=== PATIENT | female | born 1990 | race Caucasian/White ===

== ENCOUNTER 2018-11-14 17:51 | Outpatient (REF) | payer OTHER, SELFPAY ==
[2018-11-17 14:03] LABS: Chlamydia Result Negative; GC Result Negative; Specimen Description CERVIX
== END 2018-11-14 18:11 ==
LOC: LBN 17:51
PROVIDERS: PCP Nurse Practitioner Family; Visit Provider Nurse Practitioner Women's Health
DX: Z11.3 Encounter for screening for infections with a predominantly sexual mode of transmission (principal)
CPT/HCPCS: 87491; 87591

== ENCOUNTER 2020-11-23 14:44 | Outpatient (REF) | payer OTHER, SELFPAY ==
--- NOTE | 2020-11-23 14:15 | PAPFT_PTH ---
PATIENT: Bebe Cronin LOC: [facility] U#:[id number] AGE/SX: 30/F ROOM: RE11/23/[address]: Connie Kwon NP : 1990 BED: DIS: 11/23/2020 SPEC #: [id number] RECD: 11/23/20 17:53 STATUS: ALEK MARTINEZ #: [id number] YUKO: 11/23/20 14:[address]: Connie Kwon NP DEPT: [facility] Cytology RECD BY: Zahraa Higgins ENTERED: 11/23/20 17:54 SP TYPE: PAPFT OTHR DR: Crissy Benavides Tissues: 1 - CX/ENDOCX FOR PAP SMEARS Procedures: PAP THIN PREP/UVM Screening HPV DNA PROBE Comments: [id number]
== END 2020-11-23 14:45 | disposition home or self-care (01) ==
LOC: LBN 14:44
PROVIDERS: PCP Nurse Practitioner Family; Visit Provider Nurse Practitioner Women's Health
DX: Z12.4 Encounter for screening for malignant neoplasm of cervix (principal); Z11.51 Encounter for screening for human papillomavirus (HPV)
CPT/HCPCS: 88142; 87624

== ENCOUNTER 2022-01-18 04:09 | Outpatient (CLI) | payer OTHER, SELFPAY ==
[2022-01-18 09:19] LABS: TSH (W/Ref FT4) 2.73 uIU/mL (0.36-3.74)
== END 2022-01-18 04:10 | disposition home or self-care (01) ==
LOC: LBO 04:10
PROVIDERS: PCP Nurse Practitioner Family; Visit Provider Nurse Practitioner Women's Health
DX: R63.5 Abnormal weight gain (principal)
CPT/HCPCS: 36415; 84443

== ENCOUNTER 2022-03-20 15:44 | Outpatient (REF) | payer OTHER, SELFPAY ==
[2022-03-20 14:23] LABS: Abs Immature Grans 0.02 10^3/uL (0.0-0.06); Absolute Basophil Count 0.04 10^3/uL (0.0-0.2); Absolute Eosinophil Count 0.08 10^3/uL (0.0-0.7); Absolute Lymphocyte Count 1.41 10^3/uL (1.2-3.4); Absolute Monocyte Count 0.54 10^3/uL (0.1-0.8); Absolute Neutrophil Count 5.24 10^3/uL (1.2-6.7); Basophils % 0.5; Eosinophils % 1.1; HCT 41.1 % (36.0-46.0); HGB 14.1 g/dL (11.2-15.7); Immature Grans % 0.3; Lymphocytes % 19.2; MCH 30.7 pg (27.0-33.0); MCHC 34.3 % (32.0-36.0); MCV 90 fL (80-95); MPV 10.5 fL (8.0-11.0); Monocytes % 7.4; Neutrophils % 71.5; Platelet Count 257 10^3/uL (130-400); RBC 4.59 10^6/uL (3.93-5.22); RDW-SD 39.3 fL; WBC 7.33 10^3/uL (4.4-10.8)
[2022-03-20 14:44] LABS: Iron 59 ug/dL (50-170); Total Iron Binding Capacity 249 ug/dL (250-450); Transferrin Sat 24 % (15-50)
[2022-03-20 15:07] LABS: Anion Gap 6.5 mmol/L (3-11); BUN 11 mg/dL (7-18); CO2 29.5 mmol/L (21.0-32.0); CREATININE 0.9 mg/dL (0.55-1.02); Calcium 9.1 mg/dL (8.5-10.1); Chloride 107 mmol/L (98-107); FREE T4 0.94 ng/dL (0.76-1.46); Ferritin 103 ng/mL (8-252); Glucose 87 mg/dL (74-106); Potassium 4.1 mmol/L (3.5-5.1); Sodium 143 mmol/L (136-145); TSH 1.56 uIU/mL (0.36-3.74); Vitamin B12 289 pg/mL (193-986)
[2022-03-20 22:45] LABS: T3,Free 3.3 pg/mL (2.8-5.3)
== END 2022-03-20 15:45 | disposition home or self-care (01) ==
LOC: NCHCN 15:44
PROVIDERS: PCP Nurse Practitioner Family; Visit Provider Nurse Practitioner Family
DX: Z00.00 Encounter for general adult medical examination without abnormal findings (principal); R51.9 Headache, unspecified; R55 Syncope and collapse; R14.0 Abdominal distension (gaseous); R53.83 Other fatigue; L85.3 Xerosis cutis; M25.561 Pain in right knee; M25.562 Pain in left knee; Z13.21 Encounter for screening for nutritional disorder
CPT/HCPCS: 80048; 82607; 82728; 83540; 83550; 84439; 84443; 84481; 85025

== ENCOUNTER 2023-04-05 01:55 | Outpatient (CLI) | payer BC, SELFPAY ==
[2023-04-05 10:39] LABS: Abs Immature Grans 0.03 10^3/uL (0.0-0.06); Absolute Basophil Count 0.02 10^3/uL (0.0-0.2); Absolute Eosinophil Count 0.04 10^3/uL (0.0-0.7); Absolute Lymphocyte Count 1.55 10^3/uL (1.2-3.4); Absolute Monocyte Count 0.45 10^3/uL (0.1-0.8); Absolute Neutrophil Count 5.17 10^3/uL (1.2-6.7); Basophils % 0.3; Eosinophils % 0.6; HGB 13.8 g/dL (11.2-15.7); Immature Grans % 0.4; Lymphocytes % 21.3; MCH 30.2 pg (27.0-33.0); MCHC 34.5 % (32.0-36.0); MCV 88 fL (80-95); MPV 9.6 fL (8.0-11.0); Monocytes % 6.2; Neutrophils % 71.2; Platelet Count 209 10^3/uL (130-400); RBC 4.57 10^6/uL (3.93-5.22); RDW 12.4 % (11.7-14.6); RDW-SD 39.7 fL; WBC 7.26 10^3/uL (4.4-10.8)
[2023-04-06 11:20] LABS: HIV-1/2 Ag & Ab Screen Negative (Negative)
[2023-04-08 10:47] LABS: Hepatitis C Ab w Rflx HCV PCR Negative (Negative)
[2023-04-08 10:50] LABS: Hepatitis B Surface Ag Negative (Negative)
[2023-04-08 11:36] LABS: Rubella IgG Ab (UVM) Positive (See Note); Varicella IgG Antibody Positive (See Note)
[2023-04-08 16:09] LABS: Syphilis IgG w/Reflex Nonreactive (Nonreactive)
== END 2023-04-05 01:56 | disposition home or self-care (01) ==
LOC: LBO 01:55
PROVIDERS: PCP Nurse Practitioner Family; Visit Provider Advanced Practice Midwife
DX: Z34.91 Encounter for supervision of normal pregnancy, unspecified, first trimester (principal)
CPT/HCPCS: 36415; 86787; 86803; 86850; 86900; 86901; 87340; 87389; 85025; 86762; 86780

== ENCOUNTER 2023-04-05 09:52 | Outpatient (REF) | payer BC, SELFPAY ==
[2023-04-05 13:41] LABS: *AMPHETAMINES SCREEN URINE Negative (Negative); *BARBITURATES SCREEN URINE Negative (Negative); *BENZODIAZEPINES SCREEN URINE Negative (Negative); Cannabinoids THC Negative (Negative); Cocaine Screen,Urine Negative (Negative); METHADONE URINE SCREEN Negative (Negative); OPIATES URINE SCREEN Negative (Negative)
[2023-04-05 13:44] LABS: Tricyclic Antidepressants Negative (Negative)
== END 2023-04-05 09:53 | disposition home or self-care (01) ==
LOC: LBN 09:52
PROVIDERS: PCP Nurse Practitioner Family; Visit Provider Advanced Practice Midwife
DX: Z34.91 Encounter for supervision of normal pregnancy, unspecified, first trimester (principal); Z3A.12 12 weeks gestation of pregnancy
CPT/HCPCS: 80307; 87086

== ENCOUNTER 2023-05-03 13:32 | Outpatient (REF) | payer BC, SELFPAY ==
[2023-05-04 14:09] LABS: Chlamydia Result Negative (Negative); GC Result Negative (Negative)
== END 2023-05-03 13:33 | disposition home or self-care (01) ==
LOC: LBN 13:32
PROVIDERS: PCP Nurse Practitioner Family; Visit Provider Advanced Practice Midwife
DX: Z34.92 Encounter for supervision of normal pregnancy, unspecified, second trimester (principal); Z3A.16 16 weeks gestation of pregnancy; Z11.3 Encounter for screening for infections with a predominantly sexual mode of transmission
CPT/HCPCS: 87491; 87591

== ENCOUNTER 2023-07-26 02:29 | Outpatient (CLI) | payer BC, SELFPAY ==
[2023-07-26 11:35] LABS: HCT 34.3 % (36.0-46.0); HGB 12.1 g/dL (11.2-15.7); MCH 31.7 pg (27.0-33.0); MCHC 35.3 % (32.0-36.0); MCV 90 fL (80-95); MPV 9.5 fL (8.0-11.0); Platelet Count 195 10^3/uL (130-400); RBC 3.82 10^6/uL (3.93-5.22); RDW-SD 42.1 fL; WBC 8.14 10^3/uL (4.4-10.8)
[2023-07-26 11:56] LABS: Glucose,1 Hr (Glucola) 104 mg/dL (80-140)
== END 2023-07-26 02:30 | disposition home or self-care (01) ==
LOC: LBO 02:30
PROVIDERS: PCP Nurse Practitioner Family; Visit Provider Advanced Practice Midwife
DX: Z34.93 Encounter for supervision of normal pregnancy, unspecified, third trimester (principal)
CPT/HCPCS: 36415; 82950; 85027; 86850

== ENCOUNTER 2023-09-20 09:51 | Outpatient (REF) | payer BC, SELFPAY ==
[2023-09-20 11:49] LABS: *AMPHETAMINES SCREEN URINE Negative (Negative); *BARBITURATES SCREEN URINE Negative (Negative); *BENZODIAZEPINES SCREEN URINE Negative (Negative); Cannabinoids THC Negative (Negative); Cocaine Screen,Urine Negative (Negative); METHADONE URINE SCREEN Negative (Negative); OPIATES URINE SCREEN Negative (Negative); Tricyclic Antidepressants Negative (Negative)
[2023-09-27 12:16] LABS: Buprenorphine Negative ng/mL (Cutoff: 5.0)
== END 2023-09-20 09:52 | disposition home or self-care (01) ==
LOC: LBN 09:51
PROVIDERS: PCP Nurse Practitioner Family; Visit Provider Advanced Practice Midwife
DX: Z34.93 Encounter for supervision of normal pregnancy, unspecified, third trimester (principal)
CPT/HCPCS: 80307; 80348; 87081

== ENCOUNTER 2023-10-10 10:14 | Outpatient (CLI) | payer BC, SELFPAY ==
[2023-10-10 10:21] VITALS: BP 107/64; PULSE 67; TEMP 36.7
--- NOTE | 2023-10-10 11:08 | W.OBNST ---
Date of service: 10/10/23 Time of Service: 11:08 NST Evaluation Reason for NST Reasons for Nonstress Test: OTHER, SEE COMMENT Reason for NST Other: Decreased Movement Gestational Age Gestational Age in Weeks and Days: 38 Weeks and 6Days Test and Monitor Explained Test/Monitor Explained: Test Explained and Monitor Explained Vital Signs Blood Pressure: 107/64 Pulse: 67 Temperature: 98.1 F NST Information Date on Monitor: 10/10/23 Time on Monitor: 09:51 Date off Monitor: 10/10/23 Time off Monitor: 10:24 Total Time on Monitor: 33 NST Interventions: None NST Evaluation Patient States Movement: Present FHR Baseline: 135 Variability: Moderate 6-25 bpm Accelerations: 15x15 Decelerations: None NST Results: Reactive Note Ultrasound Done: N/A. NST Note Note: NST due to slight decrease in movement for baby reported at office visit. NST is reactive and reassuring and patient is relieved. Planned IOL on 10/16. CJ NST Reviewed and Verified by: Saige Hirsch
[2023-10-10 11:09] VITALS: BP 107/64; PULSE 67; TEMP 36.7
== END 2023-10-10 10:27 | disposition home or self-care (01) ==
LOC: BCD 10:15
PROVIDERS: PCP Nurse Practitioner Family; Visit Provider Advanced Practice Midwife
DX: O36.8131 Decreased fetal movements, third trimester, fetus 1 (principal); Z3A.38 38 weeks gestation of pregnancy
CPT/HCPCS: 59025

== ENCOUNTER 2023-10-16 07:34 | Inpatient (IN) | payer BC, SELFPAY ==
[2023-10-16] VITALS (75 sets, daily range): BP systolic 103–120; BP diastolic 55–75; PULSE 0–101; RESP 16; TEMP 36–37.2; O2SAT 99
[2023-10-16 08:32] LABS: HCT 35.2 % (36.0-46.0); HGB 11.9 g/dL (11.2-15.7); MCH 29.7 pg (27.0-33.0); MCHC 33.8 % (32.0-36.0); MCV 88 fL (80-95); MPV 10.3 fL (8.0-11.0); Platelet Count 195 10^3/uL (130-400); RBC 4.01 10^6/uL (3.93-5.22); RDW 12.6 % (11.7-14.6)
[2023-10-16] MEDS: miSOPROStol 25 MCG TAB 50 MCG PO (08:44)
--- NOTE | 2023-10-16 08:44 | W.PM.OBHPL1 ---
Date of service: 10/16/23 Time of Service: 08:44 Assessment and Plan Assessment and plan (1) Encounter for induction of labor: Status: Acute Assessment and plan: 1. Admission for induction of labor due to previous precipitous delivery and need at that time to also go to OR causing her emotional trauma and fear that it could happen that way again, prefers control and being in hospital for labor. 2. I have reviewed in detail, methods of induction, why they are used, risks, potential side effects and intended outcomes as well as procedures associated with induction. She is aware that induction can be a slower process. She prefers that physician is in house when is immanent and I have reviewed this with our physician team and they have agreed. I will also make OR aware that she is here for induction and that she did require trip to OR in past for repair but that she does not have plans for epidural. 3. CBC and type and screen obtained. 4. Elder are both Rh negative and she chose to not do Rhogam in . His red cross card is scanned into chart. 5. Low risk at this time for SD, pre-eclamspia or PPH will continue to reassess risks throughout labor. 6. Expect NVD. KH OB-HPI Labor/Delivery History of Present Illness Reason for Visit: Induction of Labor Chief Complaint: Scheduled Induction of Labor Indication for Induction: Other (history of precipitous labor). DEISY Calculator Estimated Delivery Date Method Current WG Current Estimate 10/18/23 LMP (Certain) 39w 5d Other Estimates 10/16/23 Ultrasound #1 40w 0d Comments: Bebe christiano Tyrone present for a scheduled induction of labor at 39w5d due to history of precipitous labor and trauma related to arriving at hospital in advanced labor and then needing to go to OR after delivery due to lacerations for repair. She is hoping to have a controlled labor and . We discussed options of induction vs expectant management of labor, she prefers to move forward with induction today. Denies LOF or vaginal bleeding. Baby has been active. We discussed options and methods of induction and when or why we might use any of the methods. She denies questions and verbalizes understanding of risks, benefits and alternatives to induction of labor with cervical ripening, pitocin, misoprostol, AROM or mechanical ripening with kaminski bulb. Her preference is to start with misorpostol. She is aware of tightening sensations at this time, but states they aren't real contractions. Her preference is least intervention and to use tub at time if possible. Low risk for SD, Pre-ecalmpsia or PPH is induction is not prolonged. KH History of Present Expected Delivery Route/Plan - CNM FOB/ - Tyrone White Prefers not to know the gender, will circ if male Consider MD in-house d/t previous (decels, 3rd degree) Desires nitrous & shower, plans unmedicated , might want to try tub GBS negative Specific Issues/Plan 1. Hoping for induction at 39 weeks due to precipitous labor/ 2. Declines all optional testing 3. Rh neg, Did not receive RhoGam @ 28 wks, FOB B Neg per [place] card 4. tdap done 08/23 Assessment: History Reviewed & Current Informed Consent Informed Consent: Induction of Labor and Risk,Benefits,Alternatives Discussed Review of Systems All systems reviewed & are unremarkable except as noted in HPI and below (having BH contractions) PFSH All Active Problems (Updated 10/16/23 @ 08:59 by Saige Hirsch CNM) Encounter for induction of labor (Acute) Rh negative status during (Acute) Nausea and vomiting during prior to 22 weeks gestation (Acute) History of precipitous labor and deliveries in third trimester, antepartum (Acute) (Acute) Missed menses (Acute) Family History maternal aunt Personal history of malignant neoplasm breast CA, at 32 y.o. ALS (amyotrophic lateral sclerosis) Breast cancer at age 33, no other family members affected Mother Hereditary spastic paraplegia Her provider does not believe this is a genetic concern Father Diabetes Essential hypertension Hyperlipidemia Maternal Grandmother Cancer cervical cancer Social History Smoking/Tobacco Use Status: Never Smoking risk assessment performed?: Yes Alcohol Intake: never Substance use type: does not use Household members: spouse and children Housing: house Pets and animals: Yes Pets and animals: cat(s), dog(s) and horse(s) Current gender identity: female Do you feel safe at home: Yes Do you feel safe in your relationship?: Yes Female Reproductive History Menstrual control method: progestin IUCD (Mirena inserted by Sharon CAMARENA VHF=[id number] EXP=02/2021) History History 3 Para 2 Hx # Term Pregnancies 2 Multiple births 0 Hx # Pregnancies 0 Ectopic pregnancies 0 AB induced 0 Hx Number of Living Children 2 AB spontaneous 0 Past Pregnancies Del. Date GA/Weeks # Preg Succ Route Wgt Sex Labor Lgth Anesthesia Location Prov Complic 02/16/14 39 No Yes vaginal 7 lb 12 oz Male 10 [facility] 11/04/15 41 No Yes vaginal 8 lb 6 oz Male 3 [facility] [address] Andino other Delivery Date: 02/16/14 Last Updated by: Mary Fernandez Nml , Gigi Delivery Date: 11/04/15 Last Updated by: Mary Fernandez Precip labor, prolonged w/decel, episiotomy and 3rd degree, MD arrived after , repair by MD Benja Padilla Allergies and Home Medications Allergies Allergy/AdvReac Type Severity Reaction Status Date / Time No Known Allergies Allergy Unverified 10/16/23 08:53 Home Medications Medication Instructions Recorded Confirmed Type vits no.126-ferrous fum 1 tab PO DAILY 02/25/23 10/10/23 History 28 mg iron-folic acid 800 mcg tablet (Classic ) pantoprazole 40 mg tablet,delayed 40 mg PO DAILY #30 tabs 05/03/23 10/10/23 Rx release (Protonix) Exam Physical Exam Vital signs: Temp Pulse Resp BP Pulse Ox 97.5 F L 86 16 120/75 99 10/16/23 08:27 10/16/23 08:27 10/16/23 08:27 10/16/23 08:27 10/16/23 08:27 Vital Signs Reviewed: Yes Constitutional Constitutional: no acute distress and average body habitus Detailed Labor and Delivery Exam Dilation: 1.2 Effacement (%): 40 station: -2 Position: ROP Cervix position: posterior Consistency: soft Thomas Score: Cervical Points Exam 0 1 2 3 Dilation Closed 1-2cm 3-4 cm 5-6cm Effacement 0-30% 40-50% 60-70% 80% Consistency Firm Medium Soft Station -3 -2 -1,0 +1,+2 Position Posterior Mid Anterior THOMAS Score(Cervical Ripeness Score): 5 Amniotic Membrane Status: Intact Contraction Frequency(min): irregular Contraction Duration(sec): 40-60 Contraction Intensity: Mild Fetus A Heart Rate Baseline: 145 Monitor Accelerations: 15 X 15 Monitor Decelerations: None Variability: Moderate (6-25 BPM) Categories: Category I Est. Weight: 7 lb 8 oz HEENT Exam HEENT Exam: Normal Neck Exam Neck Exam: Normal Chest/Brest/Axilla Exam Chest Exam: Normal Breast Exam Breast Exam: Not Done Respiratory Exam Respiratory Exam: Normal Cardiovascular Exam Cardiovascular Exam: Normal Abdominal Exam Abdominal Exam: Normal (gravid, size equals dates) Rectal Exam Rectal Exam: Not Done Exam Exam: Normal Extremities Exam Extremities Exam: Normal Back/Spine/Pelvis Exam Back Exam: Normal Pelvis Adequate: Yes Skin Exam Skin Exam: Normal Neurological Exam Neurological Exam: Normal Psychiatric Exam Psychiatric Exam: Normal Results Results Group Beta Strep: Negative Blood Type: B- Rubella Status: Immune Varicella Immunity: Immune Lab Results: GC CT neg, Syphilis and Hep B and C neg, HIV neg, declined cfDNA, CF neg in 2013 declined SMA, 1 hour 104 Abnormal Lab Findings: Abnormal Labs 10/16/23 08:25 Hct 35.2 L Risk Assessment Risk for Shoulder Dystocia Historical/Initial OB: NEGATIVE FOR: Pelvic Abnormality, Pre- BMI>30, Previous Shoulder Dystocia or Previous Macrosomia 36 Weeks: NEGATIVE FOR: Current Gestational DM, EFW>4500gms or Maternal Weight Gain>40lbs 40 Weeks: NEGATIVE FOR: EFW> 4500 gms, Maternal Weight Gain >40lb or Post Dates Date/Initial: 04/05/23 Delivery Plan @ 36wks: Delivery Plan @ 40 wks: induction of labor 39-40 Risk for Pre-Eclampsia Date Initiated/Initials: 04/05/23 Yes, if one or more: NEGATIVE FOR: Hx Pre-E/Gest HTN, Chronic HTN, Multiple Gestation, Pre-gestational DM, Renal Disease, Systemic Lupus or APA Syndrome Yes, if 2 or more: NEGATIVE FOR: Nulliparity, Age>= 35 yrs, >10yr btwn pregnancies, BMI>30, ethinicty, Mother/Sister w/ Pre-E or Previous IUGR Risk for Post- Hemorrhage Initial: NEGATIVE FOR: Multiple Gestation, Previous PPH, Known Clotting Deficiency, Grand Multiparity or Anticoagulation 36 Weeks: NEGATIVE FOR: Anemia, hgb<10, Low platelets(thrombocytopenia), Gestational HTN or Pre-E, Polyhydraminios or EFW>4500gms 40 Weeks: NEGATIVE FOR: Anemia, hgb<10, Low platelets (thrombocytopenia), Gestation HTN or Pre-E, Polyhydraminios or EFW>4500gms Counseled re: Active Management: Yes Date/Initials: 10/16/23 Risks Reviewed Risks Reviewed Upon Admission: Yes
--- NOTE | 2023-10-16 13:04 | W.PM.OBNL1 ---
Date of service: 10/16/23 Time of Service: 13:04 Informed Consent Informed Consent: Induction of Labor and Risk,Benefits,Alternatives Discussed Pelvic Exam Dilation: 4 Effacement (%): 70 station: -2 Position: ROT Cervix Position: mid Consistency: soft BISHOPS Score(Cervical Ripeness Score): 8 Contractions Monitor Mode: External Contraction Frequency(min): 2-3 Contraction Duration(sec): 40-60 Intensity: Moderate Fetus A Monitor: Novii Heart Rate Baseline: 135 Variability: Moderate (6-25 BPM) Categories: Category II Decelerations: Variable (non reletative) Recurrence: Intermittent Amniotic Membrane Status: Ruptured Rupture Method: Artifical Amniotic Fluid: Clear Amount: large Date of Membrane Rupture: 10/16/23 Time of Membrane Rupture: 13:01 Assessment and Plan Assessment and plan (1) Encounter for induction of labor: Status: Acute Assessment and plan: 1. AROM offered and accepted for augmentation of labor 2. Expect NVD, will reassess in 2 hours or prn. KH Objective Abnormal lab results 10/16/23 Range/Units 08:25 Hct 35.2 L (36.0-46.0) % Temp Pulse Resp BP Pulse Ox 97.5 F L 75 16 117/67 99 10/16/23 08:27 10/16/23 13:03 10/16/23 08:27 10/16/23 13:03 10/16/23 08:27 Laboratory Results WBC 6.70 10^3/uL (4.4-10.8) 10/16/23 08:25 RBC 4.01 10^6/uL (3.93-5.22) 10/16/23 08:25 Hgb 11.9 g/dL (11.2-15.7) 10/16/23 08:25 Hct 35.2 % (36.0-46.0) L 10/16/23 08:25 MCV 88 fL (80-95) 10/16/23 08:25 MCH 29.7 pg (27.0-33.0) 10/16/23 08:25 MCHC 33.8 % (32.0-36.0) 10/16/23 08:25 RDW 12.6 % (11.7-14.6) 10/16/23 08:25 Plt Count 195 10^3/uL (130-400) 10/16/23 08:25 MPV 10.3 fL (8.0-11.0) 10/16/23 08:25 Patient ABO/Rh B Negative 10/16/23 08:25 Antibody Screen NEGATIVE 10/16/23 08:25 Vital Signs Reviewed: Yes Subjective Interval history since last seen: Bebe is aware of contractions but states they aren't painful. Would prefer to try AROM for labor augmentation. KH Results Hemoglobin/Hematocrit: Hgb 11.9 g/dL (11.2-15.7) 10/16/23 08:25 Hct 35.2 % (36.0-46.0) L 10/16/23 08:25 Abnormal Lab Findings: Abnormal Labs 10/16/23 08:25 Hct 35.2 L
[2023-10-16] MEDS: Oxytocin 10 UNITS/ML VIAL IM (17:40)
[2023-10-16] MEDS: Lidocaine 1% Multi-Dose 20 ML VIAL IJ (18:13)
--- NOTE | 2023-10-16 18:13 | OBVDS_ITS ---
Date of service: 10/16/23 Time of Service: 18:14 OB Labor/ Delivery Information Baby A Delivery Delivery Method: Spontaneaous Presentation: Vertex Vertex Position: Left Occipital Anterior Cord Description-Baby A: 3 Vessels, Nuchal Cord (loose X 1), Reduced and Clamped/Cut Amniotic Fluid: Clear Estimated Blood Loss: 250 Delivery Outcome: Liveborn Infant Complications: none Transferred: Remains with Mother Note: Bebe and Tyrone present for induction of labor due to history of precipitous labor. Bebe had 1 dose of Misoprostol at approximately 0841 and began to have regular contractions shortly after. FHR tracing was reassuring with accelerations, normal baseline and moderate variability. There was a prolonged deceleration X 1 that resolved with position changes. At 1301 AROM was performed to augment labor. VE was 4cm at that point. She progressed nicely and felt a need to go to tub and use nitrous for relief. At approximately 1655 she was back in bed and had some strong urges to push, VE 8/100/-1. [employer]SEMBLER called and IV started as she requested epidural despite my encouraging her to continue present management as baby would be born soon. VE at 1715 10 cm after anterior lip was reduced. Second stage huddle was held. FHR WNL and low risk for shoulder dystocia or PPH. Pitocin 10 units IM will be given as IV has come out. Bebe was supported to push which she did very effectively in hands and knees position. She delivered a live female over 1st degree midline laceration at 1735. Nuchal cord times 1 loose was noted and reduced easily over baby's head before shoulders delivered and baby was brought to Mother's abdomen. Cord was double clamped and cut by FOB at 1740. 10 units pitocin was given IM to Bebe after baby was born. Cord bloods were obtained. 3 vessel cord noted. Placenta delivered spontaneously, intact at 1744. fundus firms to U with massage. EBL 250. Baby girl White's apgars were 9 and 9. Weight will be on completed delivery records. Bebe plans to breast feed her daughter. Expect 24-48 hour PP stay. Mother, Father and baby are all in satisfactory condition. Providers Nurse Electrician Crane Maintenance: Saige Hirsch Nurse: Daphne Rizzo Nurse: Bill Calixto Labor/Delivery Information Number of Babies in Womb: 1 Steroids Given: None Reason Steroids Not Administered: N/A Group Beta Strep: Negative Antibiotics Administered: No Rubella Status: Immune Blood Type: B- Varicella Immunity: Immune Maternal Complications: None Shoulder Dystocia: No Stages of Labor Onset of Labor Date: 10/16/23 Onset of Labor Time: 14:00 Complete Dilatation Date: 10/16/23 Complete Dilatation Time: 17:15 Labor - Stage 1 Duration: 3 hours and 15 minutes ROM Baby A: 10/16/23 ROM Baby A: 13:01 ROM Total Time- Baby A: [id number] Infant Delivery Date-Baby A: 10/16/23 Delivery Time-Baby A: 17:35 Labor Stage 2 Duration: 20 minutes Placenta Delivery Date-Baby A: 10/16/23 Placenta Delivery Time-Baby A: 17:44 Labor-Stage 3 Duration: 9 minutes Total Length of Labor-Baby A: 3 hours and 35 minutes Placenta Cultured: No Placenta Status: Delivered Baby A Gender: Female Gestational Status: Term (39-41.6 wks) Gestational Age in Weeks/Days: 39 Weeks and 5 Days Score-1 Minute Interval(Baby A) Heart Rate-1 minute: 100 BPM or Greater Respiratory Effort- 1 minute: Spontaneous/Strong Cry Muscle Tone-1 minute: Active Movement Reflex Response-1 minute: Prompt Response Color-1 minute: Bluish Hands or Feet Total Score-1 minute: 9 Score-5 Minute Interval(Baby A) Heart Rate- 5 minute: 100 BPM or Greater Respiratory Effort-5 minute: Spontaneous/Strong Cry Muscle Tone-5 minute: Active Movement Reflex Response-5 minute: Prompt Response Color-5 minute: Bluish Hands or Feet Total Score- 5 minute: 9
[2023-10-16] MEDS: Dibucaine 1% 28 GM TUBE TP (18:52)
[2023-10-16] MEDS: Hamamelis Leaf/Glycerin 100 EACH BOX PR (18:52)
[2023-10-16] MEDS: Acetaminophen 325 MG TAB 650 MG PO (22:19)
[2023-10-16] MEDS: Ibuprofen 600 MG TAB PO (22:20)
[2023-10-17 02:55] VITALS: BP 104/60; PULSE 78
[2023-10-17 03:12] VITALS: TEMP 36.5
[2023-10-17 07:30] VITALS: BP 95/58; PULSE 74; RESP 16; TEMP 36.7; O2SAT 98
[2023-10-17] MEDS: Acetaminophen 325 MG TAB 650 MG PO ×2 (08:09→15:39)
[2023-10-17] MEDS: Ibuprofen 600 MG TAB PO (08:10)
[2023-10-17] MEDS: Docusate Sodium 100 MG CAP PO (08:10)
[2023-10-17 11:30] VITALS: BP 106/69; PULSE 72; RESP 16; TEMP 36.9; O2SAT 97
--- NOTE | 2023-10-17 14:54 | W.PM.OBPNV1 ---
Date of service: 10/17/23 Time of Service: 14:54 Assessment and Plan Assessment and plan (1) Term delivered: Status: Acute Assessment and plan: A: PPD#1, nml recovery well Pleased with experience P: Discharge today when released Written instructions reviewed and given to pt F/up @ 2 & 6 wks Vasectomy already done Exam Physical Exam Vital signs: Temp Pulse Resp BP Pulse Ox 98.4 F 72 16 106/69 97 10/17/23 11:30 10/17/23 11:30 10/17/23 11:30 10/17/23 11:30 10/17/23 11:30 Vital Signs Reviewed: Yes Constitutional Constitutional: no acute distress and cooperative HEENT Exam HEENT Exam: Normal Neck Exam Neck Exam: Normal Breast Exam Bilateral: Breast Exam: Normal and Soft Nipple Exam: Normal and Uninjured Respiratory Exam Respiratory Exam: Normal Cardiovascular Exam Cardiovascular Exam: Normal Abdominal Exam Abdomen: Other (soft, nontender) Fundal Exam Fundus: Below Umbilicus and Firm Rectal Exam Rectal Exam: Normal Exam Patient deferred: perineal exam Extremities Exam Extremity Exam: Normal, Full ROM and Warm to Touch Back/Spine/Pelvis Exam Back Exam: Normal Skin Exam Skin Exam: Normal Neurological Exam Neurological Exam: Normal Psychiatric Exam Psychiatric Exam: Normal
--- NOTE | 2023-10-17 14:59 | DSE_ITS ---
Date of service: 10/17/23 Time of Service: 14:59 DS: Diagnosis Discharge Diagnosis (1) Term delivered: Status: Acute Discharge Plan Disposition Patient Disposition: Home Condition: Good Discharge Details Reason For Visit: Induction of Labor Admit Date/Time: 10/16/23 07:34 Admit Provider: Saige Hirsch Attending Provider: Saige Hirsch Primary Care Provider: Crissy Benavides Hospital Course Hospital Course: on day of admission, nml course Home Meds and New Rx's Prescriptions: No Action Classic 28 mg iron- 800 mcg tablet 1 tab PO DAILY Discharge Instructions Additional Instructions: Please keep your 2 and 6 week appointments with your heavy mobile equipment repairer Stand Alone Forms: BC Instructions, BC Post Vaginal Deliver Activity:: Activity as Tolerated Equipment/Supplies:: No Equipment Needed Diet:: Normal Diet OB:DS Summary Summary Vaginal Delivery Method: Spontaneaous Episiotomy Description: None Laceration Description: Perineal Laceration Extension: First Degree Contraception Discussed Contraception Discussed: Yes Contraceptive Plan: Vasectomy, Infant Gender-Baby A: Female Status at Discharge Functional status at discharge: independent ambulation Overall status at discharge: patient is progressing back to baseline Mental Status: mental status grossly normal Speech and Movement: speech and movement normal and speech clear Mood: congruent mood Affect: normal affect Exam Physical Exam Vital signs: Temp Pulse Resp BP Pulse Ox 98.4 F 72 16 106/69 97 10/17/23 11:30 10/17/23 11:30 10/17/23 11:30 10/17/23 11:30 10/17/23 11:30 Constitutional Constitutional: no acute distress and cooperative HEENT Exam HEENT Exam: Normal Neck Exam Neck Exam: Normal Breast Exam Bilateral: Breast Exam: Normal and Soft Respiratory Exam Respiratory Exam: Normal Cardiovascular Exam Cardiovascular Exam: Normal Abdominal Exam Abdomen: Other (soft, nontender) Fundal Exam Fundus: Below Umbilicus and Firm Rectal Exam Rectal Exam: Normal Exam Patient deferred: perineal exam Extremities Exam Extremity Exam: Normal, Full ROM and Warm to Touch Back/Spine/Pelvis Exam Back Exam: Normal Skin Exam Skin Exam: Normal Neurological Exam Neurological Exam: Normal Psychiatric Exam Psychiatric Exam: Normal PFSH All Active Problems (Updated 10/17/23 @ 14:56 by Mary Fernandez) Term delivered (Acute) Medical History (Updated 10/17/23 @ 14:56 by Mary Fernandez) Encounter for induction of labor Rh negative status during Nausea and vomiting during prior to 22 weeks gestation History of precipitous labor and deliveries in third trimester, antepartum Missed menses Family History maternal aunt Personal history of malignant neoplasm breast CA, at 31 y.o. ALS (amyotrophic lateral sclerosis) Breast cancer at age 33, no other family members affected Mother Hereditary spastic paraplegia Her provider does not believe this is a genetic concern Father Diabetes Essential hypertension Hyperlipidemia Maternal Grandmother Cancer cervical cancer Social History Smoking/Tobacco Use Status: Never Smoking risk assessment performed?: Yes Alcohol Intake: never Substance use type: does not use Household members: spouse and children Housing: house Pets and animals: Yes Pets and animals: cat(s), dog(s) and horse(s) Current gender identity: female Do you feel safe at home: Yes Do you feel safe in your relationship?: Yes Female Reproductive History Menstrual control method: progestin IUCD (Mirena inserted by Sharon CAMARENA CCL=[id number] EXP=02/2021) History History 3 Para 2 Hx # Term Pregnancies 2 Multiple births 0 Hx # Pregnancies 0 Ectopic pregnancies 0 AB induced 0 Hx Number of Living Children 2 AB spontaneous 0 Past Pregnancies Del. Date GA/Weeks # Preg Succ Route Wgt Sex Labor Lgth Anesth esia Location [facility] 02/16/14 39 No Yes vaginal 7 lb 12 oz Male 10 [facility] 11/04/15 41 No Yes vaginal 8 lb 6 oz Male [address] [facility] [address] Andino other Delivery Date: 02/16/14 Last Updated by: Mary Fernandez Nml , Gigi Delivery Date: 11/04/15 Last Updated by: Mary Fernandez Precip labor, prolonged w/decel, episiotomy and 3rd degree, MD arrived after , repair by MD Yousif DS: Data Vitals/I&O Vitals and I&O: Vital Signs Temperature 98.4 F 10/17/23 11:30 Temperature Source Oral 10/17/23 11:30 Pulse 72 10/17/23 11:30 Pulse Rhythm Regular 10/17/23 07:30 Respiratory Rate 16 10/17/23 11:30 Blood Pressure 106/69 10/17/23 11:30 Blood Pressure Mean 81 10/17/23 11:30 Pulse Oximetry 97 10/17/23 11:30 Oxygen Delivery Method Room Air 10/16/23 08:27 Oxygen Flow Rate 0 10/16/23 08:27 Pain Level 3 10/17/23 11:30 Intake & Output 10/16/23 10/17/23 10/17/23 23:59 11:59 23:59 Intake Total 400 / 400 600 / 600 Output Total 600 / 600 200 / 200 Balance -200 / -200 400 / 400 Intake: Oral 400 / 400 600 / 600 Output: Urine 600 / 600 200 / 200 Other: Urine Appearance Clear Urine Odor None Voiding Methods Toilet
[2023-10-17 15:30] VITALS: BP 113/67; PULSE 68; RESP 16; TEMP 36.9; O2SAT 96
== END 2023-10-17 19:55 | disposition home or self-care (01) | DRG 807 ==
PROVIDERS: Admitting Provider Advanced Practice Midwife; PCP Nurse Practitioner Family; Visit Provider Advanced Practice Midwife
DX: O36.0930 Maternal care for other rhesus isoimmunization, third trimester, not applicable or unspecified (principal); Z37.0 Single live birth; O69.81X0 Labor and delivery complicated by cord around neck, without compression, not applicable or unspecified; O70.0 First degree perineal laceration during delivery; Z3A.39 39 weeks gestation of pregnancy
CPT/HCPCS: 36415; 85027; 86850; 86900; 86901; J2590; J3490

== ENCOUNTER 2025-09-03 09:39 | Outpatient (REF) | payer SELFPAY ==
[2025-09-03 17:34] LABS: HCT 41.4 % (36.0-46.0); HGB 13.9 g/dL (11.2-15.7); MCH 29.3 pg (27.0-33.0); MCHC 33.6 % (32.0-36.0); MCV 87 fL (80-95); MPV 10.9 fL (8.0-11.0); Platelet Count 265 10^3/uL (130-400); RBC 4.75 10^6/uL (3.93-5.22); RDW 12.1 % (11.7-14.6); RDW-SD 38.6 fL; WBC 6.02 10^3/uL (4.4-10.8)
[2025-09-03 17:52] LABS: ALT 17 U/L (10-49); AST 17 U/L (<34); Albumin 4.4 g/dL (3.4-5.0); Alkaline Phosphatase 53 U/L (46-116); Anion Gap 9.5 mmol/L (3-11); BUN 17 mg/dL (9-23); Bilirubin, Total 0.70 mg/dL (0.2-1.2); CO2 26.5 mmol/L (20.0-31.0); Calcium 9.5 mg/dL (8.3-10.6); Chloride 106 mmol/L (98-107); Cholesterol 181 mg/dL (<200); Glucose 89 mg/dL (74-106); HDL Cholesterol 65 mg/dL (>40); Potassium 4.6 mmol/L (3.5-5.1); Sodium 142 mmol/L (136-145); Total Protein 7.0 g/dL (5.7-8.2)
== END 2025-09-03 09:40 | disposition home or self-care (01) ==
LOC: NCHCN 09:39
PROVIDERS: PCP Nurse Practitioner Family; Visit Provider Nurse Practitioner Family
DX: Z00.00 Encounter for general adult medical examination without abnormal findings (principal)
CPT/HCPCS: 80053; 80061; 85027

== ENCOUNTER 2025-09-22 10:25 | Outpatient (REF) | payer OTHER, SELFPAY ==
--- NOTE | 2025-09-22 10:15 | PAPFT_PTH ---
PATIENT: Bebe Cronin LOC: [facility] U#:[id number] AGE/SX: 35/F ROOM: RE09/22/[address]: Connie Kwon NP : 1990 BED: DIS: 09/22/2025 SPEC #: [id number] RECD: 09/22/25 13:33 STATUS: ALEK MARTINEZ #: [id number] YUKO: 09/22/25 10:[address]: Connie Kwon NP DEPT: [facility] Cytology RECD BY: Zahraa Higgins ENTERED: 09/22/25 13:33 SP TYPE: PAPFT OTHR DR: Muna Lomeli Tissues: 1 - CX/ENDOCX FOR PAP SMEARS Procedures: PAP THIN PREP/UVM Screening HPV DNA PROBE Comments: (HPV 16 & 18/45)
== END 2025-09-22 10:26 | disposition home or self-care (01) ==
LOC: LBN 10:25
PROVIDERS: PCP Nurse Practitioner Family; Visit Provider Nurse Practitioner Women's Health
DX: Z12.4 Encounter for screening for malignant neoplasm of cervix (principal)
CPT/HCPCS: 88142; 87624